=== PATIENT | female | born 1995 | race Caucasian/White ===

== ENCOUNTER 2022-11-21 13:44 | Emergency (ER) | payer OTHER, SELFPAY ==
--- NOTE | ~2022-11-21 | US_ITS ---
EXAMINATION: US pelvic complete w TV DATE: 11/21/2022 16:24 INDICATION: lower abd cramping and pain TECHNIQUE: Multiple transabdominal and endovaginal sonographic images of the pelvis were obtained. COMPARISON: None. FINDINGS: Uterus: 7.8 x 4.6 x 5.1 cm. Endometrial complex measures 8 mm. Endometrial stripe is heterogeneous wi th focal hypoechoic and hyperechoic areas. Right Ovary: 3.4 x 1.9 x 3.1 cm. Vascular flow is present. Left Ovary: 2.8 x 2.0 x 1.9 cm. Vascular flow is present. There is small volume free fluid in the pelvis. IMPRESSION: Heterogeneous and calcified areas present within an irregular endometrial cavity. This may represent retained products of conception, chronic calcifications, or endometritis in the appropriate clinical context. Reviewed, dictated and finalized at location K. NT ENGINEER IMPRESSION: Heterogeneous and calcified areas present within an irregular endometrial cavit y. This may represent retained products of conception, chronic calcifications, or endometritis in the appropriate clinical context.
[2022-11-21 13:50] VITALS: BP 155/87; PULSE 93; RESP 15; TEMP 36.8; O2SAT 100
[2022-11-21 14:13] LABS: Basophils Absolute Auto 0.1 K/mm3 (0.0-0.1); Eosinophils Absolute Auto 0.2 K/mm3 (0-0.3); Eosinophils Percent Auto 1.5 % (0-4.4); Hematocrit 37.6 % (37.0-47.0); Hemoglobin 12.3 g/dL (12.0-15.0); Immature Granulocyte Absolute 0.04 K/mm3 (0.00-0.031); Immature Granulocyte Percent A 0.4 % (0-0.5); Lymphocytes Absolute Auto 3.81 K/mm3 (0.9-3.2); Lymphocytes Percent Auto 35.2 % (18.3-44.2); Mean Corpuscular HGB Conc 32.7 g/dl (32-36); Mean Corpuscular Hemoglobin 27.8 pg (26-34); Mean Corpuscular Volume 85.1 fl (80-100); Monocytes Absolute Auto 0.6 K/mm3 (0.1-0.6); Monocytes Percent Auto 5.7 % (2.6-8.5); Neutrophils Absolute Auto 6.1 K/mm3 (1.3-6.7); Neutrophils Percent Auto 56.2 % (45.5-73.1); Platelet Count Result 283 k/mm3 (150-375); Red Blood Count 4.42 M/mm3 (4.2-5.4); Red Cell Distribution Width 13.9 % (11.5-14.5); White Blood Count 10.8 K/mm3 (4.5-10.0)
[2022-11-21 14:28] LABS: Add Urine Microscopic? YES; Appearance Urine Clear (Clear); Bilirubin Urine Negative (Negative); Blood Urine Negative (Negative); Color Urine Yellow (Yellow); Glucose Urine UA Negative (Negative); Ketones Urine Negative (Negative); Leukocyte Esterase Ur 1+ LEU/UL (Negative); Nitrate Urine Negative (Negative); Protein Urine Negative (Negative); Urobilinogen Urine 0.2 mg/dL (<2.0); pH Urine 7.5 (5.0-9.0)
[2022-11-21 14:37] LABS: Mucus Urine Rare /lpf; RBC Urine 0-2 /hpf (0-2); Squamous Epithelial Cell Urine Moderate /hpf (Few); WBC Urine 0-3 /hpf
[2022-11-21 14:42] LABS: Beta HCG Quantitative < 2.39 mIU/ML
--- NOTE | 2022-11-21 15:08 | ED.FEMALEGU ---
HPI - Female Genitourinary General Chief complaint: HELP DESK TECHNICIAN Stated complaint: miscarriage ?? Time Seen by Provider: 11/21/22 14:50 History of Present Illness HPI Narrative: Patient is a 27-year-old female here for evaluation of left vaginal bleeding and lower abdominal pain for the past 4 days. Patient took a test a week ago after she was 10 days late on her menstrual cycle and it was positive. She began to bleed 4 days ago and presented to [facility], where she was told that her blood tests were negative for and therefore her symptoms were attributed to a normal menstrual cycle. Patient presents today due to concerns of continued lower pelvic pain, brown discharge and fullness in her labia. Related Data Allergies Allergy/AdvReac Type Severity Reaction Status Date / Time latex AdvReac Rash Verified 11/21/22 15:17 Review of Systems Review of Systems: Gen: Denies fevers or chills Eyes: Denies eye pain or visual change ENT: Denies congestion Respiratory: Denies shortness of breath or cough CV: Denies chest pain or palpitations GI: Denies abdominal pain nausea, emesis or diarrhea : Reports lower abdominal pain and brown discharge. Denies burning, urgency, frequency or hematuria Musculoskeletal: Denies back pain or muscle pain Neuro: Denies numbness, tingling, weakness or focal weakness Skin: Denies rash Except as documented, all other systems reviewed and negative Exam Narrative: APPEARANCE: tearful, otherwise well-appearing Head: Normocephalic and atraumatic. EYES: PERRLA/EOMI, conjunctivae clear NOSE: No nasal drainage EARS: External ear normal in appearance THROAT: Oropharynx is clear. Mucous membranes are moist. NECK: Supple. No adenopathy, no masses. RESPIRATORY: Airway patent, respirations nonlabored. Clear to auscultation bilaterally, no rales, rhonchi, wheezing. CARDIOVASCULAR: Regular rate and rhythm without murmurs, rubs, or gallops. : exam performed with online marketer henri. scant amount of green/white discharge noted in vaginal vault. no CMT. ABDOMINAL: Normoactive bowel sounds. Soft, nontender, nondistended. No rebound tenderness or guarding. MUSCULOSKELETAL: Extremities are warm and well-perfused. Moves all extremities well. No edema. NEURO: Normal speech. No focal neurologic deficits. SKIN: Skin is warm and dry. No rashes. PSYCHIATRIC: Normal affect/mood. Course Vital Signs Vital signs: Vital Signs Temperature 98.3 F 11/21/22 13:50 Pulse Rate 93 11/21/22 13:50 Respiratory Rate 15 11/21/22 13:50 Blood Pressure 155/87 H 11/21/22 13:50 Pulse Oximetry 100 11/21/22 13:50 Oxygen Delivery Room Air 11/21/22 13:50 Temperature 98.3 F 11/21/22 13:50 Pulse Rate 63 11/21/22 15:21 Respiratory Rate 15 11/21/22 13:50 Blood Pressure 113/64 11/21/22 15:21 Pulse Oximetry 100 11/21/22 13:50 Oxygen Delivery Room Air 11/21/22 13:50 MDM - Female Genitourinary MDM Narrative Medical decision making narrative: 27-year-old female here for evaluation of lower pelvic pain and brown discharge over the past several days in the setting of positive home test but negative blood test at outside hospital. Patient's quant is negative here as well. She has a white count of 10.8. Urine with 1+ leuks, likely contaminated specimen given presence of epithelial cells. Pelvic exam with moderate amount of green discharge, swabs for infection were taken. Pelvic ultrasound with abnormal thickening of the endometrium, which may be endometritis, retained products of conception or calcifications. Spoke with Dr. Rey on for Dr. Kennedy, patient's chief executive, regarding findings on ultrasound, recommends treatment with Augmentin and doxycycline and f/u in office. Less likely to be retained products of conception and more likely endometritis. Patient was discharged home, return precautions discussed and she voiced understanding. Lab Data 11/21/22 14:04 Labs:
[2022-11-21 15:20] VITALS: BP 111/62; BP 114/73; PULSE 59; PULSE 62
[2022-11-21 15:21] VITALS: BP 113/64; PULSE 63
== END 2022-11-21 17:26 | disposition home or self-care (01) ==
PROVIDERS: Emergency Medicine; Emergency Provider Physician Assistant; PCP Physician Assistant
DX: N80.9 Endometriosis, unspecified (principal)
CPT/HCPCS: 36415; 76830; 76856; 81001; 81025; 84702; 85025; 87070; 87491; 87591; 87808; 99284